=== PATIENT | male | born 1940 | race Caucasian/White ===

== ENCOUNTER → 2020-11-27 | Outpatient (CLI) | payer MEDICARE, BC | LOC: RAD 08:58 | DX: K42.9 Umbilical hernia without obstruction or gangrene (principal); I71.4 Abdominal aortic aneurysm, without rupture | CPT/HCPCS: Q9967 ==

== ENCOUNTER → 2021-12-13 | Outpatient (CLI) | payer MEDICARE, BC ==
[2021-12-13 08:28] LABS: BASO # 0.03 K/mm3 (0.02-0.10); EOS % 4.6 % (0.0-4.0); HEMATOCRIT 44.4 % (42.0-52.0); HEMOGLOBIN 14.1 g/dL (13.5-18.0); LYMPH# 1.22 K/mm3 (1.50-4.00); MEAN CELL VOLUME 96 fl (78-100); MEAN CORPUSCULAR HEMOGLOBIN 30 pg (27-31); MEAN CORPUSCULAR HGB CONC 32 g/dL (33-37); MEAN PLATELET VOLUME 10.7 fl (7.4-10.4); MONO # 0.72 K/mm3 (0.20-0.80); NEU # 4.21 K/mm3 (1.40-6.50); PLATELET COUNT 166 K/mm3 (130-400); RED BLOOD COUNT 4.65 M/mm3 (4.20-5.60); RED CELL DISTRIBUTION WIDTH 14.3 % (11.5-14.5); WHITE BLOOD COUNT 6.5 K/mm3 (4.8-10.8)
[2021-12-13 08:32] LABS: PROTHROMBIN TIME 10.4 SECONDS (9.0-12.0)
[2021-12-13 09:19] LABS: POTASSIUM 4.5 mmol/L (3.5-5.1)
[2021-12-13 09:20] LABS: CALCIUM 9.5 mg/dL (8.3-10.5)
== END ==
LOC: LAB 07:25
PROVIDERS: Internal Medicine Advanced Heart Failure and Transplant Cardiology
DX: I10 Essential (primary) hypertension (principal); I71.4 Abdominal aortic aneurysm, without rupture; Z95.1 Presence of aortocoronary bypass graft; Z95.5 Presence of coronary angioplasty implant and graft